=== PATIENT | male | born 1995 | race American Indian/Alaskan Native ===

== ENCOUNTER 2018-01-17 06:24 | Day surgery (SDC) | payer OTHER ==
[2018-01-03 09:29] VITALS: BMI 21.7
[2018-01-17] MEDS ORDERED: ceFAZolin IV 1 gm in Dextrose 2 GM/100 ML BAG IVPB ONE (07:46)
[2018-01-17] MEDS ORDERED: Midazolam 2 MG/2 ML VIAL ONE (07:55)
[2018-01-17] MEDS ORDERED: Propofol 10 mg/ml Inj (20 ML) ONE (07:55)
[2018-01-17] MEDS ORDERED: Rocuronium 10 mg/ml (5 ml) ONE ×2 (08:02→09:09)
[2018-01-17] MEDS ORDERED: Morphine 4 MG/ML VIAL ONE (11:10)
[2018-01-17] MEDS ORDERED: Neostigmine Methylsulfate 3mg/3ml Syringe IV ONE (11:29)
[2018-01-17] MEDS: HYDROmorphone 0.5 mg/0.5 ml ISec IVP PRN ×4 (12:12→13:10)
[2018-01-17] MEDS ORDERED: Bupivacaine 0.25% 20 ML INJ IJ ONE (14:05)
--- NOTE | 2018-01-17 14:20 | PCM.ANESB7 ---
Adductor Canal Block - Adductor Canal Block Date of Procedure: 01/17/18 Anesthiologist: Aubrey Pre-Procedure Diagnosis: Right ACL tear Post-Procedure Diagnosis: Right ACL tear Procedure Performed: Adductor Canal Block Right - Procedure Adductor Canal Block: The procedure was explained to the patient that it is for the post-operative pain management. Consent was obtained after a thorough discussion with the patient regarding the benefits and possible complications of local anesthetic adductor canal block of the femoral nerve. Standard monitors, as defined by the ASA, were applied to the patient. Time-out was held with the circulating nurse to confirm the appropriate block. After applying supplemental oxygen and administering IV Sedation as needed, the patient was placed in supine position with and the operative leg was flexed slightly at the knee and externally rotated as needed, and was kept anatomically stable. The mid-thigh of the __right lower extremity was exposed. The ultrasound transducer was then applied transversely along the medial aspect, about midway down the thigh and the femoral artery and vein were identified in appropriate relation with the sartorius muscle. At this time, the femoral nerve was visualized lateral to the femoral artery within the canal. After thorough identification, this area area was prepped with Chloroprep solution three times and 1 % Lidocaine was injected subcutaneously for topical anesthesia. At this point, a #22 gauge Stimuplex 4-inch needle was inserted in-plane in a [id number] orientation, and advanced toward the femoral nerve. Advancement was performed carefully under direct ultrasound visualization. Nerve stimulator was used and appropriate muscle twitch was obtained at current of MA. After negative aspiration, _20__cc of __0.25_% ___bupivicaine_was injected. Under ultrasound guidance the local anesthetics were observed spreading around the femoral nerve. The needle was removed intact and sterile dressing was applied. The patient had stable vital signs, was conscious and in no apparent distress.
[2018-01-17 15:18] VITALS: RESP 18
[2018-01-17] MEDS ORDERED: Oxycodone/Acetaminophen 5/325 mg Tab PO STA (17:15)
[2018-01-17 18:32] VITALS: BP 139/74; PULSE 87; TEMP 97.8; O2SAT 100
--- NOTE | 2018-01-20 16:30 | PCM.SURG1 ---
Surgeon's Initial Post Op Note - Surgeon's Notes Surgeon: Dasha Galicia MD Territory Representative: Storm Olivares PA-C Type of Anesthesia: General Endo, [facility] Pre-Operative Diagnosis: Right knee: #1 complete ACL tear w/ instability. #2 medial mensical tear Operative Findings: Right knee: #1 complete ACL tear w/ instability. #2 medial mensical tear (peripheral tear at red-red zone / menisco-capsular seperation, repairable). #3 lateral meniscal tear (complex posterior horn tear, horizantal cleavage tear at white-red zone, partially repairable). #4 synovitis. #5 symptomatic medial plica band. #6 hypertorophic inflamed fat pad Post-Operative Diagnosis: Right knee: #1 complete ACL tear w/ instability. #2 medial mensical tear (peripheral tear at red-red zone / menisco-capsular sepe ration, repairable). #3 lateral meniscal tear (complex posterior horn tear, horizantal cleavage tear at white-red zone, partially repairable). #4 synovitis. #5 symptomatic medial plica band. #6 hypertorophic inflamed fat pad Operation Performed: Right knee: #1 arthroscopic assisted ACL reconstruction with autograft - allograft HS hybrid graft. #2 arthroscopic all-inside medial meniscal repair. #3 arthroscopic partial lateral menisectomy with all-inside lateral meniscus repair. #4 arthroscopic extensive synovectomy all 3 compartments. #5 arthroscopic resection and debridement symptomatic medial plica band. #6 arthroscopic resection and debridement hypertrophic inflamed fat pad. #7 arthroscopic intra-articular PRP injection Specimen/Specimens Removed: specimen= none. complications= none. Implants=. #1 Arthrex: [id number] biocomposite interference screw for tibial sided fixation of ACL graft, tight rope button and suture for femoral sided fixation ACL graft, 1x semiT allograft HS for hybrid ACL graft construct. #2 Linvatec: all inside sequent meniscal repair system, 12 implants (3 kits) for LM repair), 8 implants (2 kits) for MM repair Estimated Blood Loss: EBL {In ML}: 10 Blood Products Given: N/A Drains Used: No Drains Post-Op Condition: Good Date of Surgery/Procedure: 01/17/18 Time of Surgery/Procedure: 07:00
--- NOTE | 2018-01-30 10:16 | OP ---
PROCEDURE DATE: 01/17/2018 PREOPERATIVE DIAGNOSES: Right knee: 1. Complete anterior cruciate ligament tear with instability. 2. Medial meniscal tear. POSTOPERATIVE DIAGNOSES: Right knee: 1. Complete anterior cruciate ligament tear with instability. 2. Medial meniscal tear (peripheral red-red zone/meniscal capsular separation, peripheral tear, repairable). 3. Lateral meniscal tear (complex posterior horn tear, horizontal cleavage tear at white/red zone, partially repairable). 4. Three compartment synovitis, posttraumatic. 5. Symptomatic medial plica band. 6. Hypertrophic inflamed fat pad causing anterior impingement. PROCEDURES: Right knee: 1. Arthroscopic-assisted anterior cruciate ligament reconstruction with autograft, hamstring with allograft augmentation. 2. Arthroscopic all-inside medial meniscal repair. 3. Arthroscopic partial lateral meniscectomy with all-inside lateral meniscal repair. 4. Arthroscopic extensive synovectomy, all 3 compartments. 5. Arthroscopic resection and debridement, symptomatic medial plica band. 6. Arthroscopic resection and debridement, hypertrophic inflamed fat pad. 7. Arthroscopic intraarticular platelet-rich plasma injection. SURGEON: Dasha Galicia MD LINER WORKER: Storm Olivares PA-C JUSTIFICATION FOR LINER WORKER: Storm Olivares is a certified physician activities assistant whose skilled surgical services was an absolute necessity for successful completion of the procedure, as he provided skilled surgical assistance with positioning of patient, positioning extremity, management of surgical field, retraction of neurovascular structures, preparation of ACL autograft, hamstring, ACL graft with allograft augmentation, autograft hamstring harvest with a posterior minimally invasive approach, facilitating all-inside medial meniscal repair and lateral meniscus repair, handling of arthroscopic equipment, preparation of femoral ACL tunnel, preparation of tibial ACL tunnel, passage of ACL graft with femoral-sided fixation and tibial-sided fixation, wound closure, fitting and placement of postop hinged knee brace. Storm Olivares was present for the entire case and was an absolute necessity for successful completion of the procedure. ANESTHESIA: General endotracheal anesthesia with a postop regional nerve block placed by anesthesia staff in PACU. SPECIMENS: None. COMPLICATIONS: None. TOURNIQUET TIME: Zero minute. ESTIMATED BLOOD LOSS: 10 mL. DRAINS: None. DISPOSITION: The patient was extubated and transferred to PACU in stable condition and tolerated the procedure well. IMPLANTS: 1. Arthrex 11 mm x 28 mm BioComposite Interference screw for tibial-sided fixation of ACL graft, TightRope button and suture for femoral-sided fixation of ACL graft, semitendinosus allograft as augmented for hybrid ACL graft construct. 2. [facility] all-inside Sequent meniscal repair system with placement of 12 implants for lateral meniscus repair (3 kits opened), 8 implants for medial meniscus repair (2 kits opened). INDICATIONS FOR SURGERY: The patient is a 22-year-old male with no significant past medical history who presented to the office for the first time on 11/16/2017 with right knee pain and instability for 2 months. He stated that in 09/2017 while playing football recreationally, he was running with the ball and pivoted his body over his right knee resulting in sensation of a pop and immediate 10/10 pain, localized to the lateral aspect of the knee and the lateral joint line as well as instability and swelling. He saw his primary care physician who referred him for an MRI of the right knee. Since the injury, the pain has been consistent, localized to lateral joint line with clicking and catching, and he has been unable to return to sports as he has the subjective sensation of instability since the injury. On evaluation in the office, he had significant tenderness to palpation at the lateral joint line and the medial joint line with positive medial and lateral Alex, he had significant ACL instability with a 3+ anterior drawer without a firm endpoint, 3+ Belinda, and 2+ pivot shift with full range of motion obtained. MRI of the right knee done at [facility] on 10/02/2017, was read as: 1. Complete ACL tear. 2. Sub-articular impaction bone contusions (pivot injury). 3. On my review of the MRI and discussing the case with the musculoskeletal radiologist at [facility], there was significant signal change in the periphery of the lateral meniscus and the medial meniscus representing possible peripheral, medial, and lateral meniscal tears. There was also signal change at the articular surface of the lateral femoral condyle which potentially could represent chondral injury. X-rays done in the office on 11/16/2017, showed right knee with no fracture or dislocation, overall neutral alignment with joint space well maintained and no obvious evidence of DJD developing. He was referred to start physical therapy, working on strengthening and stretching, and potentially preoperative ACL rehabilitation to strengthen him and prepare him for surgery. He was placed in an [id number] ACL brace and was instructed to wear the brace as much as possible especially with increased activity. On followup in the office on 01/02/2018, the patient stated that he had good interval improvement in strength and hamstring stretching while working with physical therapy. He states that he was compliant with the physical therapy recommendations as well as brace use. He has done his research about ACL surgery as well as meniscus repair surgery, and at that point of time, was convinced that he needed to undergo the ACL reconstruction. Anytime that he tried any sport activity or pivoting activity without the brace on, he felt that his knee would give out and subjective feeling of instability as well as medial and lateral joint line pain. He was indicated for right knee surgery equal sign, arthroscopic assisted ACL reconstruction with autograft hamstring with the possible need for allograft augmentation, medial and lateral meniscus repair versus partial meniscectomy, evaluation of chondral surface and appropriate joint preservation treatment in the form of chondroplasty versus microfracture, synovectomy and debridement and all related indicated arthroscopic procedures. The risks, benefits, and alternatives to the procedure were discussed in length with the patient with the risks included, but not limited to infection, neurovascular damage, development of chronic pain and disability, development of blood clots including DVT and PE, failure of graft, failure of fixation, failure of meniscus repair, need for further surgery, chondrolysis and accelerated degenerative process, stiffness, need for manipulation under anesthesia of arthrofibrosis does develop, and he does not have satisfactory range of motion, anesthesia reactions including . After answering all of his questions, he stated that he understood the risks and wished to proceed with surgery. He watched surgical animation videos and diagnosis animation videos available on my website while at home and also during his office visits. After answering all of his questions, he stated that he had good understanding of the multiple parts of the surgery as well as his multiple diagnosis. He was referred to his primary care physician for preadmission testing and preoperative medical evaluation, and the procedure was scheduled at [facility] on 01/17/2018. I reviewed at length with him the postoperative rehabilitation protocol, and he stated that he had a good understanding of the need for compliance with the rehab protocol in order to maximize the chance of him having successful outcome after surgery. PROCEDURE IN DETAIL: The patient was identified in the preoperative holding area, and the right knee was marked for surgery. Once again, as described above, the risks, benefits, and alternatives to the procedure were discussed at length with the patient and informed consent was obtained. After brief discussion with the anesthesia staff, the patient was taken to the operating room and placed on the well-padded operating room table without bony problems, and superficial neurovascular structures were padded. An initial time-out was done with the surgeon, anesthesia staff, OR staff, all in agreement with the patient, the procedure being done and externally being operated on. A tourniquet was placed high on the right thigh, but never inflated. General anesthesia was administered without difficulty or complication. An examination under anesthesia was then carried out. EXAMINATION UNDER ANESTHESIA: Right knee with no swelling, no warmth, no erythema, skin intact, full range of motion compared to contralateral knee, significant instability with 3+ anterior fund accounting manager neutral, external rotation, internal rotation with no endpoint, 3+ Belinda without an endpoint, 3+ pivot shift, negative posterior drawer, negative reverse Belinda, negative reverse pivot shift, negative opening to medial or lateral joint lines at 0/30 degrees, varus or valgus stress, patella with normal tracking and no evidence of instability and no significant crepitans. There was a reproducible and palpable click at the inferomedial aspect of the patella at 30 degrees flexion engaging to have flexion arc, representing a symptomatic medial plica band. CONTINUATION OF PROCEDURE: The right lower extremity was prepped and draped in standard sterile fashion. A final time-out was done with the surgeon, anesthesia staff, OR staff, all in agreement with the patient, procedure being done and the extremity to be operated on. Perioperative IV antibiotics had been administered prior to prep and drape. AUTOGRAFT HAMSTRING MINIMALLY INVASIVE POSTERIOR HARVEST: The semitendinosus and gracilis of the right knee were palpated. A 3 cm incision along the popliteal crease centered over the palpated semitendinosus and gracilis was carried out. An incision was made through the skin down subcutaneous tissue while maintaining good hemostasis down to the sartorial fascia. The sartorial fascia was sharply incised, and the underlying semitendinosus tendon with its overlying fat pad was identified. The surrounding sheath was sharply incised inline with the fibers and the underlying semitendinosus tendon was out. The overlying fat pad was carefully debrided. With blunt dissection, the proximal path to the semitendinosus tendon was freed up from any adhesions. The open-ended tendon stripper was then advanced over the tendon proximally up to the musculotendinous junction, and the proximal aspect of the semitendinosus tendon was harvested. With blunt release and dissection, the distal aspect of the tendon was palpated down to the pes insertion, and any adhesions or interfascial connections were carefully released to allow for full harvest of the distal aspect of the semitendinosus tendon. The closed ended tendon stripper was then advanced distally down to the pes insertion, and the semitendinosus tendon was harvested in its entirety and brought to the back table for my activities assistant to begin preparation of the ACL graft. We then identified and located the gracilis tendon and repeated the same steps harvesting the entire gracilis tendon. The wound was then copiously irrigated, and good hemostasis was achieved. The sartorial fascia was reapproximated loosely with #1 Vicryl suture followed by subcutaneous tissue, reapproximated with 2-0 Vicryl suture, followed by skin, reapproximated with 3-0 Monocryl suture. Once the closure for the posterior hamstring harvest was complete, we then turned our attention to the arthroscopic portion of the case while my activities assistant prepared the gracilis and semitendinosus autograft ACL graft. ARTHROSCOPIC PORTION OF THE PROCEDURE: With the use of 50 mL of normal saline, the right knee joint was insufflated. An anterolateral portal was created with stab incision through the skin down to the subcutaneous tissues down to the level of the capsule. The blunt arthroscopic trocar and cannula were inserted into the suprapatellar pouch, and insufflation with arthroscopic fluid was began. Arthroscopic camera was inserted, and with the use of spinal needle localization, optimal entry point for the anterior medial portal was identified. Stab incision was made through the skin down to the subcutaneous tissue down to the level of the capsule, and an accessory cannula was inserted through the anteromedial portal, and the knee joint was copiously irrigated for better visualization. With the use of an arthroscopic probe, a diagnostic arthroscopy was then carried out. DIAGNOSTIC ARTHROSCOPY: Attention was first turned towards the suprapatellar pouch with no evidence of loose bodies or adhesions. Attention was then turned towards the patellofemoral joint where well-seated patella with no evidence of cartilage injury was seen within the trochlea that also had cartilage that was intact with no evidence of injury. Attention then turned towards the medial gutter, where immediately seen extending from the inferior medial aspect of the patella to the medial retinaculum was a thickened hypertrophic plica band that was indeed symptomatic and creating friction with the medial aspect of the medial femoral condyle. No evidence of loose bodies or other pathology within the medial gutter. Attention was then turned towards the medial compartments, where intact medial femoral condyle and medial tibial plateau cartilage was seen. With the use of the arthroscopic probe on close and detailed evaluation of the medial meniscus, we were able to identify a peripheral red-red zone/meniscal capsular separation tear measuring approximately 2 cm at the posterior horn from the posterior medial capsule extending to the mid body and middle aspect of the capsule deep to the MCL. This tear was carefully evaluated and indeed found to represent a full thickness peripheral longitudinal tear at the red-red zone with good quality meniscal tissue amendable to all-inside meniscal repair. Attention was then turned towards the intercondylar notch where immediately seen was a complete ACL tear with a remnant ACL stump with complete detachment from the lateral femoral condyle medial wall. The PCL was intact. Attention was then turned towards the lateral compartment where immediately seen was a complex horizontal cleavage tear at the red-white zone of the posterior horn of the lateral meniscus. This appeared to be a tear that was complex in nature with poor quality white-white zone tissue with good quality, white-red zone and red-red zone tissue amendable to partial repair and stabilization of the posterior horn of the lateral meniscus. This would be carried out after a partial lateral meniscectomy would be carried out removing the unstable and poor quality lateral meniscus tissue. ALL-INSIDE MEDIAL MENISCAL REPAIR: With the use of the [employer] all-inside sequent meniscal repair system, we proceeded with an all-inside medial meniscal repair at the red-red zone meniscal capsular separation. We started from the anterior aspect of the tear at the inferior aspect of the tear, placing 4 implants with good capsular-sided fixation resulting in 3 vertical mattress sutures providing good stability to the inferior surface of the medial meniscus at the peripheral tear. These steps were then repeated at the superior aspect of the medial meniscus periphery providing good stability and resulting in 3 vertical mattress sutures with good capsular-sided fixation. The arthroscopic probe was then used to re-evaluate the all-inside medial meniscal repair and indeed good stability had been achieved with good reapproximation of the medial meniscus to the medial capsule and posterior medial capsule. The arthroscopic probe was no longer able to find a path at the periphery, indicating good reapproximation and closure of the tear. Attention was then turned towards treatment of the lateral meniscus. ARTHROSCOPIC PARTIAL LATERAL MENISCECTOMY AND ALL-INSIDE LATERAL MENISCUS REPAIR: As stated before, this was complex tear of the posterior horn extending to the posterior mid body with white-white zone unstable complex tearing as a horizontal cleavage pattern extending to the white-red zone and the red-red zone. With the use of the arthroscopic shaver and radiofrequency ablation and meniscal biters, a partial lateral meniscectomy was carried out starting at the posterior horn extending to the posterior aspect of the mid body. Once a smooth contour was established and all the unstable poor quality white-white zone meniscal tissue was resected, indeed overall approximately 15% of the lateral meniscus had been resected. Once we are down to good quality tissue of the posterior horn at the white-red zone, we proceeded with all-inside stabilization and repair of this horizontal cleavage tear. With the use of the [employer] all-inside meniscal repair system, we started at the anterior aspect of the tear with placement of 4 implants with good capsular-sided fixation resulting in 3 vertical mattress sutures, reapproximating and closing down the horizontal cleavage tear, closing down the space between the superior leaflet and the inferior leaflet. These steps were then repeated 2 more times with placement of 12 implants overall starting from the anterior aspect and extending posteriorly into the posterior horn. This resulted in a stable lateral meniscus repair of this horizontal cleavage complex pattern closing down the superior leaflet to the inferior leaflet with good stability achieved. The arthroscopic probe was then used to further evaluate this tear and look for any deficits that could require stabilization further with the meniscal repair system, and indeed satisfactory stabilization of the posterior horn and repair of this horizontal cleavage complex pattern was established. Once the lateral meniscus treatment was completed to satisfaction, we then turned our attention to creation of the ACL tunnels. ARTHROSCOPIC EXTENSIVE SYNOVECTOMY AND DEBRIDEMENT: With the use of arthroscopic shaver and radiofrequency ablation, an extensive three-compartment synovectomy, resection and debridement of the hypertrophic fat pad causing anterior impingement, resection and debridement of the symptomatic medial plica band was carried out while maintaining good hemostasis. This was an arthroscopic extensive synovectomy beyond what was considered usual and customary to establish better visualization during arthroscopic surgery and arthroscopic ACL reconstruction. There was indeed a significant amount of surgical time dedicated and committed during this surgery to this extensive synovectomy to remove all the potential pain generators within the right knee joint. As stated before, there was a significant hypertrophic inflamed fat pads causing anterior impingement and also impinging at the patellofemoral joint. There was a hypertrophic and symptomatic medial plica band causing friction with the medial femoral condyle. There was posttraumatic synovitis throughout all 3 compartments that also appeared to be a significant pain generator. Once we were done with the extensive synovectomy, all of these issues were addressed while maintaining good hemostasis. ARTHROSCOPIC-ASSISTED ANTERIOR CRUCIATE LIGAMENT RECONSTRUCTION: My activities assistant worked on preparation of the semitendinosus and gracilis autograft hamstring constructs. Doubled over the semitendinosus and gracilis together measured approximately 7 mm with the gracilis being very thin and small in size. Decision was then made to augment the construct with a semitendinosus allograft. The semitendinosus allograft was prepared by my activities assistant and doubled over with the semitendinosus autograft. The graft together measured 10 mm. Decision was made to proceed with one strand of semitendinosus from the autograft harvest and one strand of semitendinosus from the allograft donor as a hybrid autograft, allograft ACL graft construct. Once the thickness of the graft was established, I will be moving forward with. We then proceeded with placement of the femoral and tibial tunnels. With the use of the flip cutter, the Arthrex FlipCutter over the top guide, the intraarticular targeting arm was placed at the medial aspect of the lateral femoral condyle wall at the pala ACL insertion as a single bundle anatomic ACL reconstruction. Care was taken to ensure there was going to be an intact back wall after the tunnel was created. Once we are happy with the position of the guide, the lateral femoral condyle lateral incision was created with stab incision through the skin down to the subcutaneous tissues down to the iliotibial band to the lateral femoral condyle, lateral cortex. The drill sleeve was advanced from outside and engaged at the lateral femoral condyle cortex. The 10 mm FlipCutter drill was then advanced from outside to in until it was seen in the intraarticular position, and it was confirmed that it was in a good position for the single bundle anatomic ACL reconstruction. The FlipCutter drill bit was then flipped, and a 30 mm depth, 10 mm width socket was created without violating the lateral femoral condyle lateral cortex. The FlipCutter drill was then removed after completion of the socket tunnel, and the passage suture was passed through the lateral femoral condyle from outside to in and then secured around the outside over the knee for future passage of the ACL graft through the tibia into the femoral condyle. The Arthrex tibial tunnel ACL guide was then used to place the tibial tunnel. The tibial tunnel would be a full thickness 10 mm width tunnel. The ACL guide for the tibial tunnel was placed in good position within the pala ACL tibial insertion which was maintained and marked as a single bundle anatomic ACL reconstruction. Once the optimal positioning for the ACL tunnel and the tibial side was identified, a proximal medial incision measuring approximately 3 cm was created at the entry point for the guide a drill sleeve. Incision was made through the skin down to the subcutaneous tissue and down to the level of the proximal and medial cortex while maintaining good hemostasis. The drill sleeve was then advanced to the proximal medial tibial cortex. The guidewire was advanced from outside to in until it was seen in the intraarticular position and was confirmed to be in a good position with care taken to ensure that there would be no iatrogenic injury to the medial or lateral meniscal anterior horns. Once the guidewire was confirmed to be in good position, then the cannulated 10 mm drill was advanced over the guidewire from outside to in completing a full thickness 10 mm tibial tunnel. The tunnel was evaluated, and indeed it was a full thickness tunnel with an intact anterior wall in good position. The entry point for both tunnels were then debrided with the arthroscopic shaver and under direct open visualization to ensure that the graft would pass smoothly through both tunnels. The passage suture from the lateral femoral condyle was then passed through the tibial tunnel, and the graft that was prepared by my activities assistant that was placed on tension for 15 minutes was then released and passed through the tibial tunnel in to the femoral tunnel. The TightRope button was then flipped under direct arthroscopic and fluoroscopic visualization at the lateral cortex of the lateral femoral condyle with no interposed soft tissue directly onto bone. The ACL graft was then advanced into the femoral tunnel as the TightRope suture was synched down to final endpoint with the 25 mm marking of the doubled over ACL graft well-seated within the femoral tunnel. Once this was carried out satisfaction and the femoral sided fixation was achieved, we then cycled the knee through 30 full flexion and extension range of motion to remove any creep from the system. Under direct arthroscopic visualization, all 4 limbs of the graft were tightened to remove any slack from the system. The graft limbs were tightened individually. While my activities assistant held tension on the exiting limbs on the tibial side, a Bio[employer]posite Interference screw from [employer] measuring 11 mm width x 28 mm length was advanced in the tibial tunnel as tibial-sided fixation providing good fixation and establishing good tension for the ACL graft. Once the screw was in good position with the knee held at 10 degrees flexion and a posterior drawer applied to the knee while all 4 limbs of the ACL graft were maintained in good tension. Once the screw was in a good position with good stability and a fixation achieved, we then tested the knee. Indeed, ACL stability had been restored with negative anterior drawer, negative Belinda, negative pivot shift. The screw depth in the tunnel was confirmed to not be proud. Final mini C-arm fluoroscopic imaging confirmed that the screw was in a good position with good tibial tunnel and femoral tunnel placement, and the TightRope button was engaged on the lateral femoral condyle with no interposed soft tissue directly onto bone. Excess graft existing the tibial tunnel was then removed and with the use of the arthroscopic camera, final arthroscopic imaging of the ACL reconstruction graft in good position was confirmed, and final images were taken of the ACL graft as well as the all-inside medial meniscal repair, the extensive synovectomy, resection of medial plica band, resection of hypertrophic fat pad, and three-compartment synovectomy, and final images of the partial lateral meniscectomy with stabilization and repair of the horizontal cleavage tear of the posterior horn were all taken, and it was confirmed that no further intraarticular treatment was needed. The final arthroscopic images were taken, and all arthroscopic fluid and debris were then removed from the knee joint. ARTHROSCOPIC INTRAARTICULAR PLATELET-RICH PLASMA INJECTION: With the help of anesthesia staff, a peripheral venous stick was carried out yielding approximately 15 mL of venous blood. The blood was then spun in the [employer] Centrifuge yielding approximately 7 mL of PRP. The 7 mL of PRP were injected in its entirety in an intra-articular position under direct arthroscopic visualization. Once the PRP injection was completed, we then turned our attention to wound closure. All wounds were copiously irrigated. We used #1 Vicryl suture for reapproximation of the iliotibial band and the deep tissue of the proximal medial tibial wound. A two plain 0 Vicryl suture was then used for subcutaneous tissue as well as deep tissue of the arthroscopic portals. A three plain 0 Monocryl suture was used for reapproximation of the skin at all wounds. Sterile dressings were applied followed by a layer of sterile cast padding from the toes up to the superior thigh, followed by layer of compressive Duane wrap from the toes up to the superior thigh. A postop hinged knee brace provided by my office was then fitted and placed on the patient's right knee locked at 0 degrees extension. Once knee brace was in a good position, the patient was then extubated and transferred to PACU in stable condition and he tolerated the procedure well. JUSTIFICATION FOR BILLING AND CODIN. An Arthroscopic-assisted ACL reconstruction was carried out with an autograft hamstring/allograft hamstring hybrid construct. Therefore, an ACL reconstruction was coded and billed, CPT code 53102. 2. An all-inside medial meniscal repair was carried out successfully, and therefore, it was coded and billed, CPT code 68888. 3. Arthroscopic partial lateral meniscectomy with concurrent posterior horn stabilization and repair was carried out successfully. The main stay of treatment for the lateral meniscus was the partial lateral meniscectomy supplemented with the stabilization and posterior horn horizontal cleavage tear repair. Therefore, a partial lateral meniscectomy was coded and billed, CPT code 87193. 4. An extensive synovectomy was carried out in all 3 compartments beyond whether this is considered usual and customary to obtain better visualization during arthroscopic surgery. This extensive synovectomy included a three-compartments synovectomy, debridement and resection of the symptomatic medial plica band, debridement and resection of the hypertrophic fat pad causing anterior impingement. Due to the degree of surgical time dedicated to this portion of the case and the amount of work done during this extensive synovectomy, the extensive synovectomy was billed as an independent part of the procedure, CPT code 77663. 5. Arthroscopic intra-articular PRP injection: Intra-articular PRP injection was carried out successfully; and therefore, it was coded and billed, CPT code 0232T. 6. At the end of the procedure, a postop hinged knee brace provided by my office was fitted and placed on the right knee locked at 0 degrees extension. The brace was placed at the medical necessity to provide a stable environment for the ACL reconstruction graft to heal without stretching out, protect the medial meniscal repair, protect the lateral meniscus stabilization and repair of posterior horn. The postop hinged knee brace was allowed for the patient to weightbear as tolerated while ambulating at the same time protecting the meniscus repairs and ACL reconstruction graft. Therefore, a postop hinged knee brace provided by my office was coded and billed, DME code [id number]. DISPOSITION: The patient was extubated and transferred to PACU in stable condition and tolerated the procedure well. He will be discharged home once he recovers from the anesthesia. He was given a prescription for Percocet for pain control. He was instructed to keep the brace locked at 0 and be weightbearing as tolerated with the brace locked at 0 only. He was instructed on how to unlock the brace and work on regaining range of motion. He was given a prescription for physical therapy and is instructed to start physical therapy in the next 24 to 48 hours to regain his range of motion. He will follow up in my office within the next week and already has his postoperative appointment setup. He will contact me directly with any questions or concerns. After discussing DVT prophylaxis options ranging from aspirin 325 twice a day to other forms of DVT prophylaxis by mouth to Lovenox injections, which in my opinion is the best DVT prophylaxis for all patients undergoing this type of procedure. The patient elected to proceed with Lovenox injections and was given a prescription for 40 mg subcutaneous injection, starting postoperative day #1 for 2 weeks postoperatively. Again, he will contact me with any questions or concerns. Dasha Galicia MD
== END 2018-01-17 19:00 | disposition home or self-care (01) ==
LOC: C.SDS 06:24
PROVIDERS: ATTEND Student in an Organized Health Care Education/Training Program
DX: S83.511D Sprain of anterior cruciate ligament of right knee, subsequent encounter (principal); S83.231D Complex tear of medial meniscus, current injury, right knee, subsequent encounter; M65.9 Synovitis and tenosynovitis, unspecified
CPT/HCPCS: 0232T; 29876; 29880; 29888; C1713; C1762; J0171; J0690; J1170; J1885; J2250; J2270; J2405; J2704; J2710; J3010